=== PATIENT | male | born 1950 | race Caucasian/White ===

== ENCOUNTER 2018-11-22 19:50 | Emergency (ER) | payer MEDICARE, OTHER, SELFPAY ==
[2018-11-22 19:58] VITALS: BP 209/84; PULSE 72; RESP 16; TEMP 36.6; O2SAT 95; BMI 27.1
--- NOTE | 2018-11-22 20:08 | DI.RAD.S_ITS ---
PROCEDURE: XR CHEST 1V INDICATIONS: chest pain TECHNIQUE: One view of the chest was acquired. COMPARISON: None. FINDINGS: Surgical changes and devices: None. Lungs and pleura: Lungs are clear. No pleural effusions or pneumothorax. Mediastinum: Mediastinal contours appear normal. Heart size is normal. Bones and chest wall: No suspicious bony lesions. Overlying soft tissues appear unremarkable. IMPRESSION: No acute process. Dictated by: Paulette Wei M.D. on 11/22/2018 at 21:04 Approved by: Paulette Wei M.D. on 11/22/2018 at 21:04
[2018-11-22 20:23] LABS: Add Manual Diff / Slide Review NO; Basophils Absolute Auto 100 /uL (0-100); Basophils Percent Auto 1.4 % (0-2); Eosinophils Absolute Auto 300 /uL (0-450); Eosinophils Percent Auto 3.6 % (2-4); Hematocrit 37.4 % (41-53); Hemoglobin 12.4 g/dL (13.5-17.5); Lymphocytes Absolute Auto 1900 /uL (1100-4500); Lymphocytes Percent Auto 26.1 % (25-40); Mean Corpuscular HGB Conc 33.1 % (30-36); Mean Corpuscular Hemoglobin 32.2 PG (26-34); Mean Corpuscular Volume 97.3 fL (80-100); Monocytes Absolute Auto 800 /uL (0-900); Monocytes Percent Auto 11.1 % (3-14); Neutrophils Absolute Auto 4200 /uL (1500-7000); Neutrophils Percent Auto 57.8 % (50-75); Platelet Count 331 X10^3/uL (150-400); Red Blood Cell Count 3.84 X10^6/uL (4.5-5.9); White Blood Cell Count 7.3 X10^3/uL (4.5-11.0)
[2018-11-22 20:32] LABS: Alanine Aminotransferase 30 IU/L (21-72); Albumin 4.3 g/dL (3.5-5.0); Albumin Globulin Ratio 1.2 (1.0-2.8); Alkaline Phosphatase 63 U/L (38-126); Aspartate Aminotransferase 39 IU/L (17-59); BUN Creatinine Ratio 20.5 (6-22); Bilirubin Total 0.5 mg/dL (0.2-1.3); Blood Urea Nitrogen 41 mg/dL (9-20); Calcium 9.5 mg/dL (8.4-10.2); Carbon Dioxide 26 mmol/L (22-32); Chloride 102 mmol/L (98-107); Creatine Kinase 54 U/L (55-170); Estimated Glomerular Filt Rate 33.3 mL/min (>60); Globulin 3.7 g/dL (1.7-4.1); Glucose 124 mg/dL (80-110); HEMOLYSIS < 15 (0-50); Lipase 118 U/L (23-300); Potassium 4.5 mmol/L (3.4-5.1); Sodium 139 mmol/L (137-145)
[2018-11-22 20:38] LABS: INR 0.9 (0.9-1.3); Prothrombin Time 10.7 SECONDS (10.1-12.7)
[2018-11-22 20:41] LABS: PTT Partial Thromboplastin Tim 34 SECONDS (26.4-36.2)
[2018-11-22 20:43] LABS: Troponin I < 0.012 ng/mL (0.01-0.034)
--- NOTE | 2018-11-22 20:47 | ED_ITS ---
HPI - General Adult General Chief complaint: Hypertension Stated complaint: high blood pressure Time Seen by Provider: 11/22/18 20:11 Source: patient and family Mode of arrival: Ambulatory Limitations: no limitations History of Present Illness HPI narrative: Patient comes emergency department complaining of a high blood pressure reading at home. Patient states he felt ?off?, and so he checked his blood pressure at home and found to be 200 over 80. Patient denies chest pain or shortness breath. No headache, visual change, neurologic deficit, or blood in urine. No tea-colored urine. No lower extremity edema. Patient states that he has not checked his blood pressure in a couple of months, but when he has c hecked his pressure in the past, it has been 130s to 140 systolic. Patient states he has been on the same medications and doses for blood pressure for years, and has been stable. States he is currently on lisinopril and Dyazide. His primary care physician has been Dr. Becerra in [place], but as his PCP recently retired, he currently does not have anybody. Patient denies complaints currently. He states he came here because he looked up blood pressure on line, and found a [facility] website that said any blood pressure above 180 is hypertensive crisis, and to go to the emergency department. Related Data Previous Rx's Medication Instructions Recorded metoprolol tartrate 25 mg PO DAILY PRN #20 tab 11/22/18 Allergies Allergy/AdvReac Type Severity Reaction Status Date / Time adhesive tape AdvReac Mild Rash Verified 11/22/18 20:03 Review of Systems Constitutional Constitutional: Denies chills, Denies fatigue, Denies fever(s), Denies frequent falls, Denies lethargy and Denies weakness Eyes Eyes: Denies change in vision, Denies eye discharge, Denies irritation and Denies loss of vision ENT Ears, Nose, Mouth, and Throat: Denies change in voice, Denies dizziness, Denies neck pain, Denies sore throat and Denies throat swelling Cardiovascular Cardiovascular: Denies chest pain, Denies irregular heart rhythm, Denies lightheadedness, Denies palpitations, Denies dyspnea, Denies dyspnea on exertion and Denies orthopnea Respiratory Respiratory: Denies cough, Denies dyspnea, Denies dyspnea on exertion and Denies wheezing Gastrointestinal Gastrointestinal: Denies abdominal pain, Denies change in bowel habits, Denies diarrhea, Denies nausea and Denies vomiting Genitourinary Genitourinary: Denies hematuria, Denies flank pain, Denies urinary incontinence and Denies urinary urgency Musculoskeletal Musculoskeletal: Denies back pain, Denies muscle weakness, Denies neck pain, Denies numbness and Denies tingling Integumentary/Breasts Skin/Breast: Denies pruritus, Denies erythema, Denies rash and Denies wounds Neurologic Neurologic: Denies behavioral changes, Denies confusion, Denies dizziness, Denies frequent falls, Denies loss of vision, Denies numbness, Denies tingling and Denies weakness Psychiatric Psychiatric: Denies anxiety, Denies behavioral changes, Denies confusion, Denies depression, Denies homicidal ideation and Denies suicidal ideation Endocrine Endocrine: Denies fatigue, Denies flushing and Denies palpitations Hematologic/Lymphatic Hematologic/Lymphatic: Denies easy bruising Allergic/Immunologic Allergic/Immunologic: Denies urticaria, Denies throat swelling and Denies wheezing Exam Initial Vital Signs Initial Vital Signs: Vital Signs Temperature 97.9 F 11/22/18 19:58 Pulse Rate 72 11/22/18 19:58 Respiratory Rate 16 11/22/18 19:58 Blood Pressure 209/84 H 11/22/18 19:58 Pulse Oximetry 95 11/22/18 19:58 Const General: cooperative and well developed Nutritional Appearance: well nourished Orientation: alert, awake, oriented x3 and not confused [facility] Head: normocephalic and atraumatic Ears: external ears normal Nose: external nose normal and No nasal discharge Face and sinus: face symmetric and No dry mucous membranes Mouth: oral mucosae normal and moist mucous membranes Teeth and gingiva: dentition normal Eyes General: appearance normal, both eyes and all related structures Eyelids: eyelids normal Conjunctivae: conjunctivae normal Sclera: sclerae normal Pupils: PERRL EOM: EOM intact bilaterally Neck Neck: normal visual inspection, trachea midline, No lymphadenopathy, No midline deformity and No JVD Lymphatic: No lymphedema Chest Chest: normal inspection of the chest Resp Effort & Inspection: normal respiratory effort, able to speak in complete sentences, no respiratory distress and no use of accessory muscles Auscultation: clear to auscultation bilaterally, no rales, no rhonchi and no wheezes Cardio Rate: regular rate Rhythm: regular rhythm Heart Sounds: no click, no gallops, no murmurs and no rubs Pulses: normal peripheral pulses GI Inspection: non-distended Palpation: soft, no hepatosplenomegaly, No guarding, No pulsatile mass and No tender Back/Spine/Pelvis Back: No CVA tenderness Cervical Spine: cervical ROM normal and No pain with cervical ROM Thoracic/Lumbar Spine: thoracic and lumbar spine normal to inspection Skin General: no rashes or lesions noted, No jaundice and No petechiae Neuro General: alert, oriented x3, gait normal and no focal motor deficits Speech: speech normal Extrem General: full ROM, no clubbing, cyanosis or edema, no pedal edema and no calf tenderness Psych Appearance: well kempt Mental Status: mental status grossly normal Attitude: cooperative Thought Content: normal and suicidality Judgment: judgment good Course Course Course Narrative: Patient was worked up in the emergency department with laboratory studies. He was asymptomatic in the emergency department, and I discussed with the patient and his that the patient is not and hypertensive emergency. It is not clear why his blood pressure has suddenly become higher than the patient reports that usually. His blood pressure had come down quite a bit in the emergency department from what he reported finding it to be at home. The patient's labs were unremarkable, other than some moderate renal insufficiency. I discussed with the patient that we can start him on metoprolol from the emergency department, but he will need to monitor his blood pressures and have close follow-up with his primary care physician. We have discussed the signs and symptoms of hypertensive emergency, which should most definitely prompt immediate return. Orders Ordered: ED Orders 11/22/18 20:08 XR chest 1V Stat 11/22/18 20:13 Complete Blood Count AUTO DIFF Stat Comprehensive Metabolic Panel Stat Lipase Stat Partial Thromboplastin Time Stat Prothrombin Time INR Stat Troponin & CK Cardiac Panel Stat 11/22/18 20:46 Thyroid Stimulating Hormone Stat 11/22/18 21:10 EKG-12 Lead Stat Vital Signs Vital signs: Vital Signs - 8 hr 11/22/18 19:58 Temperature 97.9 F Pulse Rate 72 Respiratory Rate 16 Blood Pressure 209/84 H Pulse Oximetry 95 Medical Decision Making Medical Records Medical records reviewed: Yes I reviewed the patient's medical records. Lab Data Lab results reviewed: Yes I reviewed the patient's lab results. Result diagrams: 11/22/18 20:13 11/22/18 20:13 Labs: Lab Results 11/22/18 11/22/18 11/22/18 Range/Units 20:13 20:13 20:13 WBC 7.3 (4.5-11.0) X10^3/uL RBC 3.84 L (4.5-5.9) X10^6/uL Hgb 12.4 L (13.5-17.5) g/dL Hct 37.4 L (41-53) % MCV 97.3 (80-100) fL MCH 32.2 (26-34) PG MCHC 33.1 (30-36) % RDW 13.0 (11.6-14.8) % Plt Count 331 (150-400) X10^3/uL Neut % (Auto) 57.8 (50-75) % Lymph % (Auto) 26.1 (25-40) % [place] % (Auto) 11.1 (3-14) % Eos % (Auto) 3.6 (2-4) % Baso % (Auto) 1.4 (0-2) % Neut # (Auto) 4200 (1830-3517) /uL Lymph # (Auto) 1900 (8596-5122) /uL [place] # (Auto) 800 (0-900) /uL Eos # (Auto) 300 (0-450) /uL Baso # (Auto) 100 (0-100) /uL PT 10.7 (10.1-12.7) SECONDS INR 0.9 (0.9-1.3) APTT 34 (26.4-36.2) SECONDS Sodium 139 (137-145) mmol/L Potassium 4.5 (3.4-5.1) mmol/L Chloride 102 (98-107) mmol/L Carbon Dioxide 26 (22-32) mmol/L BUN 41 H (9-20) mg/dL Creatinine 2.00 H (0.66-1.25) mg/dL Estimated GFR 33.3 L (>60) mL/min BUN/Creatinine Ratio 20.5 (6-22) Glucose 124 H (80-110) mg/dL Calcium 9.5 (8.4-10.2) mg/dL Total Bilirubin 0.5 (0.2-1.3) mg/dL AST 39 (17-59) IU/L ALT 30 (21-72) IU/L Alkaline Phosphatase 63 (38-126) U/L Total Creatine Kinase 54 L (55-170) U/L CK-MB (CK-2) TNP CK-MB (CK-2) Rel Index TNP Troponin I < 0.012 (0.01-0.034) ng/mL Total Protein 8.0 (6.3-8.2) g/dL Albumin 4.3 (3.5-5.0) g/dL Globulin 3.7 (1.7-4.1) g/dL Albumin/Globulin Ratio 1.2 (1.0-2.8) Lipase 118 (23-300) U/L TSH (0.47-4.68) uIU/mL 11/22/18 Range/Units 20:13 WBC (4.5-11.0) X10^3/uL RBC (4.5-5.9) X10^6/uL Hgb (13.5-17.5) g/dL Hct (41-53) % MCV (80-100) fL MCH (26-34) PG MCHC (30-36) % RDW (11.6-14.8) % Plt Count (150-400) X10^3/uL Neut % (Auto) (50-75) % Lymph % (Auto) (25-40) % [place] % (Auto) (3-14) % Eos % (Auto) (2-4) % Baso % (Auto) (0-2) % Neut # (Auto) (7916-1821) /uL Lymph # (Auto) (1257-3053) /uL [place] # (Auto) (0-900) /uL Eos # (Auto) (0-450) /uL Baso # (Auto) (0-100) /uL PT (10.1-12.7) SECONDS INR (0.9-1.3) APTT (26.4-36.2) SECONDS Sodium (137-145) mmol/L Potassium (3.4-5.1) mmol/L Chloride (98-107) mmol/L Carbon Dioxide (22-32) mmol/L BUN (9-20) mg/dL Creatinine (0.66-1.25) mg/dL Estimated GFR (>60) mL/min BUN/Creatinine Ratio (6-22) Glucose (80-110) mg/dL Calcium (8.4-10.2) mg/dL Total Bilirubin (0.2-1.3) mg/dL AST (17-59) IU/L ALT (21-72) IU/L Alkaline Phosphatase (38-126) U/L Total Creatine Kinase (55-170) U/L CK-MB (CK-2) CK-MB (CK-2) Rel Index Troponin I (0.01-0.034) ng/mL Total Protein (6.3-8.2) g/dL Albumin (3.5-5.0) g/dL Globulin (1.7-4.1) g/dL Albumin/Globulin Ratio (1.0-2.8) Lipase (23-300) U/L TSH 2.43 (0.47-4.68) uIU/mL Discharge Plan Departure Patient Disposition: Home Clinical Impression: HTN (hypertension) Qualifiers: Hypertension type: essential hypertension Qualified Code(s): I10 - Essential (primary) hypertension Discharge Date/Time: 11/22/18 22:17 Instructions: DI for High Blood Pressure Activity Restrictions/Additional Instructions: Your labs, overall, looks good. There is some slowing of your kidneys, which appears to most likely be chronic. You will need to discuss this with your doctor when you follow-up. Your blood pressure now is a lot better than when you came in. You have not displayed any symptoms of hypertensive emergency/stephon is. At this point in time, you should continue your current medications for blood pressure. However, you should check your blood pressure in the morning and evening. If your morning blood pressure is greater than 150 for the top number, you should take a dose of the medication we prescribed, in addition to your normal blood pressure medications. Please schedule appointment with your primary care physician to be seen within the next week, if possible. Prescriptions: New metoprolol tartrate 25 mg tablet 25 mg PO DAILY PRN (Reason: hypertension) Qty: 20 RF: 0 Referrals: Sean Becerra MD [Primary Care Provider] -
[2018-11-22 21:14] VITALS: BP 151/62; PULSE 63; O2SAT 99
[2018-11-22 21:32] LABS: Thyroid Stimulating Hormone 2.43 uIU/mL (0.47-4.68)
== END 2018-11-22 22:17 | disposition home or self-care (01) ==
PROVIDERS: Emergency Medicine; Emergency Provider Emergency Medicine; PCP Internal Medicine
DX: I10 Essential (primary) hypertension (principal); R07.9 Chest pain, unspecified
CPT/HCPCS: 36415; 71045; 80053; 82550; 83690; 84443; 84484; 85025; 85610; 85730; 93005; 99283; 99285

== ENCOUNTER → 2018-12-27 18:50 | Outpatient (ROUT) | payer MEDICARE, OTHER, SELFPAY ==
[2018-12-27 19:29] LABS: BUN Creatinine Ratio 20.5 (6-22); Blood Urea Nitrogen 41 mg/dL (9-20); C-Reactive Protein Quant 0.7 mg/dL (<1.0); Calcium 9.5 mg/dL (8.4-10.2); Carbon Dioxide 25 mmol/L (22-32); Chloride 103 mmol/L (98-107); Cholesterol 116 mg/dL (140-199); Estimated Glomerular Filt Rate 33.2 mL/min (>60); Glucose 96 mg/dL (80-110); HDL Cholesterol 36 mg/dL (40-60); HEMOLYSIS < 15 (0-50); LDL Cholesterol Calculated 58 mg/dL (<100); Potassium 4.9 mmol/L (3.4-5.1); Sodium 138 mmol/L (137-145); Triglycerides 108 mg/dL (35-150)
== END ==
PROVIDERS: PCP Internal Medicine; Visit Provider Internal Medicine
DX: N17.9 Acute kidney failure, unspecified (principal); I76 Septic arterial embolism; E78.2 Mixed hyperlipidemia
CPT/HCPCS: 80048; 80061; 86140

== ENCOUNTER → 2022-12-29 11:08 | Outpatient (CLI) | payer MEDICARE, OTHER, SELFPAY ==
--- NOTE | 2022-12-29 | DI.MRI.S_ITS ---
PROCEDURE: MR ABDOMEN RENAL PROTOCOL INDICATIONS: LEFT RENAL MASS TECHNIQUE: Coronal HASTE through abdomen and pelvis; axial 2D FLASH in- and [id number] (with and without fat saturation), and breath-hold T2 FSE from the hepatic dome to the bottom of the kidneys. Coronal HASTE MR urogram of kidneys and bladder. Dynamic coronal VIBE during IV gadolinium administration; postgadolinium axial VIBE or 2D FLASH with fat saturation from the hepatic dome through the kidneys. COMPARISON: [facility], MR, MR ABDOMEN PELVIS WITH/WITHOUT CONTRAST, 05/19/2022, 9:58. FINDINGS: Image quality: Excellent. Genitourinary system: There are several intraparenchymal cysts in each kidney of varying sizes, but overall similar in size and number compared to the prior exam. Several demonstrate portions of intrinsic T1 hyperintensity. None demonstrate significant enhancement postcontrast. 1 such lesion is along the posterior midpole right kidney, 14/61, and another is and intraparenchymal lesion in the midpole lateral left kidney, 14/56. The left lateral lesion measures about 1.8 cm and demonstrates restricted diffusion. No hydronephrosis or visible hydroureter. Other solid organs: Several cysts in the liver. No visible enhancing mass. Normal gallbladder and biliary tree. Trace interstitial and peripancreatic edema. Glandular signal appears homogeneous. No ductal dilatation. No adrenal nodules. Normal spleen Nodes and vessels: No retroperitoneal or mesenteric adenopathy. Bowel and peritoneum: There is a small amount of free fluid in the perihepatic and perisplenic upper quadrants and dependently in the pelvis. Mild edema in the lesser sac and peripancreatic region. Stomach and bowel loops appear normal. No obstruction. Lung bases: No basal effusions. Bones and soft tissues: Normal marrow signal. No visible soft tissue abnormalities. IMPRESSION: 1. Stable size of equivocal lesion in the midpole left kidney which demonstrates no significant enhancement but restricted diffusion. Continued follow-up recommended. 2. No significant change in other Bosniak 2 lesions in each kidney. 3. There is four-quadrant ascites to a mild degree and generalized edema in the lesser sac and probably peripancreatic region. There may be mild interstitial pancreatic edema suggesting pancreatitis. Correlate with labs and with clinical symptoms. Dictated by: Misty Scott M.D. on 12/29/2022 at 15:47 Approved by: Misty Scott M.D. on 12/29/2022 at 16:16
== END ==
PROVIDERS: PCP Internal Medicine; Referring Provider Urology; Visit Provider Urology
DX: N28.89 Other specified disorders of kidney and ureter (principal); R18.8 Other ascites
CPT/HCPCS: 74183

== ENCOUNTER → 2023-07-06 08:43 | Outpatient (CLI) | payer MEDICARE, OTHER, SELFPAY ==
--- NOTE | 2023-07-06 08:44 | DI.MG.S_ITS ---
MALE BILATERAL DIGITAL DIAGNOSTIC MAMMOGRAM 3D/2D: 07/06/2023 CLINICAL: Left nipple tenderness. No prior exams were available for comparison. There is asymmetric left breast gynecomastia corresponding to area of clinical concern. No significant masses, calcifications, or other findings are seen in either breast. IMPRESSION: BENIGN Left breast asymmetric gynecomastia corresponding to area of clinical concern. Finding is benign. No mammographic evidence of malignancy. Recommend clinical follow up. Findings and recommendations were conveyed to the patient during today's evaluation. This exam was interpreted at Station ID: [id number]. NOTE: For mammograms, a report in lay terms will be sent to the patient. Approximately 15% of breast malignancies will not be visualized mammographically. In the management of a palpable breast mass, a negative mammogram must not discourage biopsy of a clinically suspicious lesion. Electronically Signed By: Amy Guevara M.D., Ph.D. eb/:07/06/2023 09:44:06 letter sent: Clinical Evaluation ACR BI-RADS Category 2: Benign Finding(s) 3342F
== END ==
PROVIDERS: PCP Internal Medicine; Referring Provider Internal Medicine; Visit Provider Internal Medicine
DX: N62 Hypertrophy of breast (principal); N63.20 Unspecified lump in the left breast, unspecified quadrant
CPT/HCPCS: 77066; G0279

== ENCOUNTER → 2023-08-15 14:55 | Outpatient (CLI) | payer MEDICARE, OTHER, SELFPAY ==
--- NOTE | 2023-08-15 14:57 | DI.RAD.S_ITS ---
PROCEDURE: XR FOOT RT MIN 3V INDICATIONS: Foot pain at base of great toe TECHNIQUE: Three views of the foot were acquired. COMPARISON: None. FINDINGS: Bones: Normal mineralization. There is bipartite medial sesamoid bone at the 1st metatarsal. Fragmentation of the bipartite lateral sesamoid bone, dystrophic calcifications, and slight distal in lateral displacement of one fragment is noted. Mild degenerative changes at the 1st MTP joint space. Normal alignment. Soft tissues: No tibiotalar joint effusion. Achilles tendon appears normal. Moderate peripheral vascular calcification. IMPRESSION: Dystrophic calcifications and fragmentation of sesamoid bones at the 1st metatarsal base. This could indicate prior fracture and disorganized, hypertrophic healing, prior fracture nonunion, or metabolic disorder. Moderate peripheral vascular calcification. Dictated by: Misty Scott M.D. on 08/15/2023 at 23:06 Approved by: Misty Scott M.D. on 08/15/2023 at 23:10
== END ==
PROVIDERS: PCP Internal Medicine; Referring Provider Nurse Practitioner Family; Visit Provider Nurse Practitioner Family
DX: M79.671 Pain in right foot (principal); I73.9 Peripheral vascular disease, unspecified; M25.50 Pain in unspecified joint
CPT/HCPCS: 36415; 73630; 84550

== ENCOUNTER → 2023-09-12 | Outpatient (CLI) | payer MEDICARE, OTHER, SELFPAY ==
--- NOTE | 2023-09-12 13:14 | DI.MRI.S_ITS ---
PROCEDURE: MR FOOT RT WO CON INDICATIONS: RT FOOT PAIN/RT GREAT TOE PROXIMAL PHALANX PAIN TECHNIQUE: Multiphasic, multisequence MRI of the forefoot was performed, without intravenous contrast administration. COMPARISON: [facility] [place], CR, XR FOOT 3 VIEWS WEIGHT BEARING RIGHT, 09/02/2023, 12:43. FINDINGS: Image quality: Excellent. Bones and joints: Diffuse marrow edema of the 1st proximal phalanx, without fracture line, nonspecific. There is mild subchondral cystic changes seen in the 1st metatarsal head, favoring degenerative. Bipartite tibial hallucal sesamoid. Small calcification slightly distal to the fibular hallucal sesamoid, concerning for hydroxyapatite deposition disease (series 10, image 29). Soft tissues: Diffuse mild muscle edema, without significant fatty atrophy. Diffuse subcutaneous edema of the dorsal midfoot. Moderate adventitial bursitis plantar to the 5th metatarsal head. The Lisfranc ligament is intact. The flexor and the extensor tendon unremarkable. No significant intermetatarsal bursitis. IMPRESSION: 1. Small calcification distal to the fibula hallucal sesamoid, concerning for hydroxyapatite deposition disease. 2. Diffuse marrow edema of the 1st proximal phalanx, nonspecific and may be reactive. No acute fracture. 3. Diffuse mild muscle edema without fatty atrophy. Subcutaneous edema in the dorsal midfoot. 4. Moderate adventitial bursitis plantar to the fifth metatarsal head. Dictated by: Emily Estrada M.D. on 09/12/2023 at 15:00 Approved by: Emily Estrada M.D. on 09/12/2023 at 15:13
== END ==
PROVIDERS: PCP Internal Medicine; Referring Provider Orthopaedic Surgery Foot and Ankle Surgery; Visit Provider Orthopaedic Surgery Foot and Ankle Surgery
DX: M71.571 Other bursitis, not elsewhere classified, right ankle and foot (principal); M79.671 Pain in right foot; M25.474 Effusion, right foot
CPT/HCPCS: 73718

== ENCOUNTER → 2023-10-19 12:18 | Outpatient (CLI) | payer MEDICARE, OTHER, SELFPAY ==
[2023-10-19 18:03] LABS: Prolactin 28.5 ng/mL (3.7-17.9)
[2023-10-19 18:19] LABS: Testosterone 429 ng/dL (71.8-623)
[2023-10-19 21:03] LABS: Follicle Stimulating Hormone 4.81 mIU/mL; Luteinizing Hormone 16.9 mIU/mL
== END ==
LOC: LAB 12:19
PROVIDERS: PCP Internal Medicine; Referring Provider Internal Medicine; Visit Provider Internal Medicine
DX: N62 Hypertrophy of breast (principal); D35.2 Benign neoplasm of pituitary gland
CPT/HCPCS: 36415; 83001; 83002; 84146; 84403

== ENCOUNTER 2024-02-29 16:16 | Emergency (ER) | payer MEDICARE, OTHER, SELFPAY ==
[2024-02-29] VITALS (13 sets, daily range): BP systolic 162–186; BP diastolic 77–87; PULSE 66–82; RESP 16; TEMP 36.5; O2SAT 95–98; BMI 25.7
--- NOTE | 2024-02-29 16:36 | PC.NURSE ---
Pt wishes to speak to MD before NIO are initiated. Pt states he had blood work drawn yesterday at [facility]. Pt informed we do not have records to [facility].
--- NOTE | 2024-02-29 17:43 | PC.NURSE ---
Patient has been having fatigue and coughing for 10 days. He's an end stage renal patient and has his labs drawn by the [facility] yesterday and has not been given the results. The patient was given a transfusion for low H&H readings 5 days ago and has not felt better and had a POC Hgb of 7.[address] Chacon's office and was sent here given his presenting symptoms and history
[2024-02-29 17:50] LABS: Add Manual Diff / Slide Review NO; Basophils Absolute Auto 100 /uL (0-100); Basophils Percent Auto 0.7 % (0-2); Eosinophils Absolute Auto 100 /uL (0-450); Eosinophils Percent Auto 1.7 % (2-4); Hematocrit 29.8 % (41-53); Hemoglobin 9.8 g/dL (13.5-17.5); Lymphocytes Absolute Auto 900 /uL (1100-4500); Lymphocytes Percent Auto 10.6 % (25-40); Mean Corpuscular HGB Conc 32.8 % (30-36); Mean Corpuscular Hemoglobin 31.8 PG (26-34); Monocytes Absolute Auto 1200 /uL (0-900); Monocytes Percent Auto 13.1 % (3-14); Neutrophils Absolute Auto 6500 /uL (1500-7000); Neutrophils Percent Auto 73.9 % (50-75); Platelet Count 353 X10^3/uL (150-400); Red Blood Cell Count 3.07 X10^6/uL (4.5-5.9); Red Cell Distribution Width 15.9 % (11.6-14.8); White Blood Cell Count 8.8 X10^3/uL (4.5-11.0)
[2024-02-29 18:03] LABS: Alanine Aminotransferase 32 IU/L (<50); Albumin 3.9 g/dL (3.5-5.0); Albumin Globulin Ratio 1.1 (1.0-2.8); Alkaline Phosphatase 73 U/L (38-126); Aspartate Aminotransferase 33 IU/L (17-59); BUN Creatinine Ratio 8.5 (6-22); Bilirubin Total 0.6 mg/dL (0.2-1.3); Blood Urea Nitrogen 99 mg/dL (9-20); Calcium 7.3 mg/dL (8.4-10.2); Carbon Dioxide 19 mmol/L (22-32); Chloride 102 mmol/L (98-107); Estimated Glomerular Filt Rate 4 mL/min (>60); Globulin 3.5 g/dL (1.7-4.1); Glucose 103 mg/dL (80-110); HEMOLYSIS < 15 (0-50); Potassium 4.4 mmol/L (3.4-5.1); Sodium 136 mmol/L (137-145); Total Protein 7.4 g/dL (6.3-8.2)
--- NOTE | 2024-02-29 18:10 | ED_ITS ---
HPI - Weakness General Chief complaint: Weakness Stated complaint: fatigue, cough, sent by PCP Time Seen by Provider: 02/29/24 17:18 Source: patient, RN notes reviewed and old records reviewed Mode of arrival: Ambulatory Limitations: no limitations History of Present Illness HPI Narrative: 73-year-old history of hypertension, dyslipidemia, GERD end-stage renal disease peritoneal dialysis Tuesday through Tuesday. Patient states he has had about 10 days of fatigue which he describes as she has been very tired. He was also has a little bit of a cough and some chest congestion. He states no fevers or chills. Denies any chest pain or pressure. No shortness of breath. No lightheadedness or passing out. No nausea or vomiting. No diarrhea or constipation. He does make urine he has not noticed any dysuria urgency or frequency or change in output. He denies any swelling of his extremities. He noticed his hips we will sort of feel heavy when he ambulates longer distance. He feels better today than he did the last 10 days notes he has been sleeping more than usual. He did see his computer patternmaker they thought he might be dehydrated and adjusted his dialysis this did not change anything they had labs obtained found he was anemic with a hemoglobin in the 7 range had transfusion and improved to 9 with no change in symptoms. Nephrology referred him to his primary care who referred him here. He had a respiratory swab in the office but these results are not available to the patient myself. He states he takes medication for hypertension, GERD, dyslipidemia, BPH, states his end-stage renal disease is assumed to be hypertension induced. Denies any major surgeries. Does do peritoneal dialysis Tuesday through Tuesday. No known drug allergies. No tobacco, alcohol or recreational drugs. Related Data Home Medications Medication Instructions Recorded Confirmed ascorbic acid (vitamin C) 500 mg 500 mg PO DAILY 04/16/22 02/29/24 tablet cholecalciferol (vitamin D3) 25 25 mcg PO DAILY 04/16/22 02/29/24 mcg (1,000 unit) capsule dorzolamide 2 % eye drops 1 drp EYE-BOTH BID 04/16/22 02/29/24 folic acid 800 mcg tablet 1.6 mg PO BID 04/16/22 02/29/24 latanoprost 0.005 % eye drops 1 drp EYE-BOTH DAILY 04/16/22 02/29/24 multivitamin 1 tab PO DAILY 04/16/22 02/29/24 tamsulosin 0.4 mg capsule 0.8 mg PO BEDTIME 04/16/22 02/29/24 thera tear 1 drp ophthalmic (eye) DAILY 04/16/22 02/29/24 darbepoetin bo in polysorbat IV [id number] anemia 04/19/23 02/29/24 [Aranesp (in polysorbate)] Previous Rx's Medication Instructions Recorded sulfasalazine 500 mg tablet 1 g (2 x 500 mg) PO BID #180 tabs 06/16/23 amlodipine 10 mg tablet 10 mg PO DAILY #90 tabs 11/14/23 omeprazole 20 mg capsule,delayed 20 mg PO DAILY #90 caps 11/14/23 release carvedilol 25 mg tablet 25 mg PO BID #180 tabs 01/02/24 rosuvastatin 20 mg tablet 20 mg PO DAILY #90 tabs 01/02/24 amoxicillin 500 mg-potassium 1 tab PO DAILY #9 tabs 02/29/24 clavulanate 125 mg tablet (Augmentin) Allergies Allergy/AdvReac Type Severity Reaction Status Date / Time adhesive tape Allergy Mild Rash Verified 02/29/24 15:45 finasteride AdvReac Intermediate gynecomasti Verified 02/29/24 15:45 a Review of Systems Review of Systems ROS Unobtainable: All systems reviewed & are unremarkable except as noted in HPI and below Patient History Medical History Primary osteoarthritis involving multiple joints Peritoneal dialysis status Gynecomastia Venous (peripheral) insufficiency Stage 4 chronic kidney disease BPH w urinary obs/LUTS Mixed hyperlipidemia Essential hypertension Acne Fractures (~1964) Chronic back pain Measles Anemia Retinal vein occlusion of right eye Glaucoma Ulcerative colitis GERD (gastroesophageal reflux disease) Surgical History Anesthesia Hx of removal of neck cyst (~1961) Family History Father COPD (chronic obstructive pulmonary disease) Pneumonia Mother History of heart disease Mental health problem Grandfather History of emphysema 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 No edema bilateral lower extremities. No JVD. RESPIRATORY: Breath sounds equal bilaterally, no wheezes rales or rhonchi. Patient has a mild cough in the room. No difficulty with breathing, no tachypnea accessory muscle use ABDOMEN: Soft, nontender. Normoactive bowel sounds all 4 quadrants. No guarding or rebound, rigidity, no mass : No CVA tenderness EXTREMITIES: Normal range of motion, no clubbing or edema. Neurovascularly intact NEUROLOGICAL: Cranial nerves II through XII grossly intact. Moving all extremities SKIN: Warm, dry, no petechiae, no rashes or lesions. Initial Vital Signs Initial Vital Signs: Vital Signs Temperature 97.7 F 02/29/24 16:20 Pulse Rate 69 02/29/24 16:20 Respiratory Rate 16 02/29/24 16:20 Blood Pressure 181/81 H 02/29/24 16:20 Pulse Oximetry 98 02/29/24 16:20 Oxygen Delivery Method Room Air 02/29/24 16:20 Course Orders Ordered: Discontinued Medications Amoxicillin/Clavulanate Potassium (Amoxicillin/Clav 500/125 Mg) 1 tab PO NOW ONE Stop: 02/29/24 19:37 Last Admin: 02/29/24 19:49 Dose: 1 tab Documented By: GILLIAN Vital Signs Vital signs: Vital Signs - 8 hr 02/29/24 16:20 Temperature 97.7 F Pulse Rate 69 Respiratory Rate 16 Blood Pressure 181/81 H Pulse Oximetry 98 Oxygen Delivery Method Room Air MDM - Weakness Lab Data 02/29/24 17:37 02/29/24 17:37 Labs: Lab Results 02/29/24 02/29/24 Range/Units 17:37 18:25 WBC 8.8 (4.5-11.0) X10^3/uL RBC 3.07 L (4.5-5.9) X10^6/uL Hgb 9.8 L (13.5-17.5) g/dL Hct 29.8 L (41-53) % MCV 97.0 (80-100) fL MCH 31.8 (26-34) PG MCHC 32.8 (30-36) % RDW 15.9 H (11.6-14.8) % Plt Count 353 (150-400) X10^3/uL Neut % (Auto) 73.9 (50-75) % Lymph % (Auto) 10.6 L (25-40) % [place] % (Auto) 13.1 (3-14) % Eos % (Auto) 1.7 L (2-4) % Baso % (Auto) 0.7 (0-2) % Neut # (Auto) 6500 (6960-8054) /uL Lymph # (Auto) 900 L (4576-8885) /uL [place] # (Auto) 1200 H (0-900) /uL Eos # (Auto) 100 (0-450) /uL Baso # (Auto) 100 (0-100) /uL Sodium 136 L (137-145) mmol/L Potassium 4.4 (3.4-5.1) mmol/L Chloride 102 (98-107) mmol/L Carbon Dioxide 19 L (22-32) mmol/L BUN 99 H (9-20) mg/dL Creatinine 11.63 H* (0.66-1.25) mg/dL Estimated GFR 4 L (>60) mL/min BUN/Creatinine Ratio 8.5 (6-22) Glucose 103 (80-110) mg/dL Calcium 7.3 L (8.4-10.2) mg/dL Total Bilirubin 0.6 (0.2-1.3) mg/dL AST 33 (17-59) IU/L ALT 32 (<50) IU/L Alkaline Phosphatase 73 (38-126) U/L Total Creatine Kinase 46 L (55-170) U/L Troponin I < 0.012 (0.01-0.034) ng/mL NT-Pro-B Natriuret Pep 3700 H (<450) pg/mL Total Protein 7.4 (6.3-8.2) g/dL Albumin 3.9 (3.5-5.0) g/dL Globulin 3.5 (1.7-4.1) g/dL Albumin/Globulin Ratio 1.1 (1.0-2.8) SARS-CoV-2 (PCR) Positive H (Negative) Influenza A (RT-PCR) Flu a negative (NEGATIVE) Influenza B (RT-PCR) Flu b negative (NEGATIVE) RSV (PCR) Negative (Negative) Blood Type O Positive Antibody Screen Negative ECG Data Attestation: I personally reviewed and interpreted this ECG as follows: Prior ECG tracings: available for review Interpretation: Sinus rhythm with first-degree AV block rate of 68 KS 230 QRS 84 QTC of 457, no acute ST changes appreciated patient has prior from 11/22/2018 to myself no acute ST changes appreciated. MDM Narrative Medical decision making narrative: 73-year-old male with end-stage renal disease who presents with complaint of cough and fatigue for the past 10 days does states today he was feeling a little bit improved had met with his computer patternmaker was found to be anemic at 7 had transfusion his hemoglobin is 9.8 today also had adjustments to his dialysis as they thought he might be dehydrated but did not improve his symptoms. EKG shows sinus rhythm first-degree AV block appears similar to prior from 11/22/2018. Show white count 8.8 hemoglobin of 9.8 platelets are 353. Chemistries shows sodium 136 potassium 4.4 chloride of 102 CO2 of 19 with a BUN of 99 creatinine today is 11.63 with a glucose of 103 calcium 7.3 LFTs are otherwise appropriate. Troponin is less than 0.012. BNP is 3700 COVID/influenza/RSV is positive for COVID Chest x-ray, right lower lobe posterior segmental pneumonia. Discussed with the patient based on his description of symptoms he was probably towards the tail end of his COVID chest x-ray does show little bit of pneumonia we will go ahead and treat he has not had any fevers present risk for immune compromise. Labs overall do not show any major changes creatinine is elevated but he has not had his dialysis today BNP is elevated but also has not had his dialysis today he does not appear fluid overloaded his chest x-ray does not reflect this. Discharge Plan Departure Patient Disposition: Home Clinical Impression: COVID-19 virus infection, Pneumonia Instructions: DI for COVID-19 (Suspected or Confirmed ) Activity Restrictions/Additional Instructions: You have tested for COVID-19 today this is a viral illness that typically last 7-10 days you are likely at the tail end of this but your chest x-ray does show changes consistent with the posterior lower left pneumonia so you has been started on oral antibiotic. Please take antibiotics until completed, take Augmentin once daily. Prescription sent to [facility] in [place] Please return if you develop fevers, increasing fatigue, shortness of breath, chest pain, lightheadedness or passing out, vomiting, decreased urine output, new swelling of your extremities or other new or concerning changes. Prescriptions: New amoxicillin-pot clavulanate [Augmentin] 500-125 mg tablet 1 tab PO DAILY Qty: 9 0RF No Action sulfasalazine 500 mg tablet 1 g PO BID Qty: 180 3RF omeprazole 20 mg capsule,delayed release(DR/EC) 20 mg PO DAILY Qty: 90 3RF amlodipine 10 mg tablet 10 mg PO DAILY Qty: 90 3RF carvedilol 25 mg tablet 25 mg PO BID Qty: 180 3RF rosuvastatin 20 mg tablet 20 mg PO DAILY Qty: 90 3RF tamsulosin 0.4 mg capsule 0.8 mg PO BEDTIME folic acid 800 mcg tablet 1.6 mg PO BID cholecalciferol (vitamin D3) 25 mcg (1,000 unit) capsule 25 mcg PO DAILY multivitamin Tablet 1 tab PO DAILY ascorbic acid (vitamin C) 500 mg tablet 500 mg PO DAILY dorzolamide 2 % drops 1 drp EYE-BOTH BID thera tear 1 drp ophthalmic (eye) DAILY latanoprost 0.005 % drops 1 drp EYE-BOTH DAILY darbepoetin bo in polysorbat [Aranesp (in polysorbate)] IV [id number] Referrals: Stephen Chacon MD [Primary Care Provider] - Stand Alone Forms: Patient Portal/API/Survey
--- NOTE | 2024-02-29 18:20 | EKG_ITS ---
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
--- NOTE | 2024-02-29 18:25 | DI.RAD.S_ITS ---
PROCEDURE: XR CHEST 2V INDICATIONS: fatigue cough, hx esrd TECHNIQUE: 2 views of the chest were acquired. COMPARISON: [facility], CR, XR CHEST 1V, 11/22/2018, 20:43. FINDINGS: Surgical changes and devices: None. Lungs and pleura: New right lower lobe posterior segmental opacification. Incidentally noted right upper accessory azygos lobe. No pleural effusions or pneumothorax. Mediastinum: Mediastinal contours are normal. Heart size is normal. Bones and chest wall: No suspicious bony abnormalities. Soft tissues appear unremarkable. IMPRESSION: Right lower lobe posterior segmental pneumonia. Dictated by: Dionicio Esparza M.D. on 02/29/2024 at 19:24 Approved by: Dionicio Esparza M.D. on 02/29/2024 at 19:25
[2024-02-29 18:50] LABS: Creatine Kinase 46 U/L (55-170)
[2024-02-29 19:03] LABS: NT-proBNP (BNP-Adult 18+) 3700 pg/mL (<450); Troponin I < 0.012 ng/mL (0.01-0.034)
[2024-02-29 19:13] LABS: Influenza A - CEPHEID Flu A NEGATIVE (NEGATIVE); Influenza B - CEPHEID Flu B NEGATIVE (NEGATIVE); Respiratory Syncytial Virus Negative (Negative)
[2024-02-29 19:18] LABS: COVID-19 CEPHEID 4-PLEX PCR POSITIVE (Negative)
[2024-02-29] MEDS: AMOXICILLIN/CLAV 500/125 MG 1 TAB PO (19:49)
== END 2024-02-29 19:55 | disposition home or self-care (01) ==
PROVIDERS: Emergency Medicine; Emergency Provider Emergency Medicine; PCP Internal Medicine
DX: U07.1 COVID-19 (principal); J18.9 Pneumonia, unspecified organism; R05.9 Cough, unspecified; R09.89 Other specified symptoms and signs involving the circulatory and respiratory systems; I44.0 Atrioventricular block, first degree
CPT/HCPCS: 0241U; 36415; 71046; 80053; 82550; 83880; 84484; 85025; 86850; 86900; 86901; 93005; 93010; 99283; 99284

== ENCOUNTER → 2024-05-02 11:52 | Outpatient (CLI) | payer MEDICARE, OTHER, SELFPAY ==
[2024-05-02 13:03] LABS: Hematocrit 41.2 % (41-53); Hemoglobin 13.3 g/dL (13.5-17.5); Mean Corpuscular HGB Conc 32.4 % (30-36); Mean Corpuscular Hemoglobin 32.8 PG (26-34); Mean Corpuscular Volume 101.1 fL (80-100); Platelet Count 284 X10^3/uL (150-400); Red Blood Cell Count 4.07 X10^6/uL (4.5-5.9); Red Cell Distribution Width 17.2 % (11.6-14.8); White Blood Cell Count 6.8 X10^3/uL (4.5-11.0)
[2024-05-02 13:25] LABS: Alanine Aminotransferase 19 IU/L (<50); Albumin Globulin Ratio 1.4 (1.0-2.8); Alkaline Phosphatase 67 U/L (38-126); Aspartate Aminotransferase 22 IU/L (17-59); Bilirubin Total 0.6 mg/dL (0.2-1.3); Blood Urea Nitrogen 91 mg/dL (9-20); Calcium 9.8 mg/dL (8.4-10.2); Carbon Dioxide 22 mmol/L (22-32); Chloride 100 mmol/L (98-107); Cholesterol 98 mg/dL (140-199); Estimated Glomerular Filt Rate 4 mL/min (>60); Globulin 2.9 g/dL (1.7-4.1); Glucose 95 mg/dL (80-110); HDL Cholesterol 29 mg/dL (40-60); HEMOLYSIS < 15 (0-50); LDL Cholesterol Calculated 47 mg/dL (<100); Potassium 5.2 mmol/L (3.4-5.1); Sodium 138 mmol/L (137-145); Total Protein 6.9 g/dL (6.3-8.2); Triglycerides 112 mg/dL (35-150)
[2024-05-02 13:41] LABS: Prolactin 30.6 ng/mL (3.7-17.9)
[2024-05-02 13:53] LABS: TSH w/ Reflex to FT4 2.57 uIU/mL (0.47-4.68)
== END ==
PROVIDERS: PCP Internal Medicine; Referring Provider Internal Medicine; Visit Provider Internal Medicine
DX: G47.9 Sleep disorder, unspecified (principal); R53.83 Other fatigue; N62 Hypertrophy of breast; E78.2 Mixed hyperlipidemia
CPT/HCPCS: 36415; 80053; 80061; 84146; 84443; 85027

== ENCOUNTER → 2024-05-09 09:14 | Outpatient (CLI) | payer MEDICARE, OTHER, SELFPAY ==
--- NOTE | 2024-05-09 | DI.ECHO.S_ITS ---
[facility]---------+ [facility] : : [address] : : [place] : : [id number] : : Phone: [phone] Echocardiogram Report + + :Name: ADRIANO HIGGINS Study Date: 05/09/2024 Height: 72 in : :Hospital ReadingLocation: Weight: 190 lb : : Gender: Male BSA: 2.1 m2 : :: 1950 Age: 73 yrs BP: 182/96 mmHg: :Reason For Study: SYSTOLIC HEART FAILURE : :Ordering Physician: MICHAEL CALERO : :J Performed By: Tracee Burleson : :Referring: MICHAEL CALERO J : + + Interpretation Summary The ejection fraction is estimated to be 55-60%. Diastolic function could not be accurately assessed due to contradictory data. The right ventricle is normal in size and function. There is mild biatrial enlargement. No valvular abnormalities. Pulmonary artery pressures cannot be estimated because of the lack of a measurable TR jet velocity but the IVC suggests a CVP of around 3 mmHg. Compared to the prior study 12/28/2018, the left ventricle is slightly less dynamic. Procedure: A two-dimensional transthoracic echocardiogram with color flow and Doppler was performed. The study quality was technically adequate. Comparison is made with the echocardiogram of 12/28/2018. The patient was in sinus rhythm with heart rates between 60-73 bpm during the exam. Left Ventricle: The left ventricle is normal in size. There is normal left ventricular wall thickness. The ejection fraction is estimated to be 55-60%. Diastolic function could not be accurately assessed due to contradictory data. Right Ventricle: The right ventricle is normal in size and function. Atria: There is mild biatrial enlargement. There is no Doppler evidence for an interatrial shunt. Mitral Valve: The mitral valve leaflets appear mildly thickened, but open well. There is mild mitral annular calcification. There is trace mitral regurgitation. Aortic Valve: The aortic valve is trileaflet. The aortic valve is mildly calcified. There is discrete nodular thickening of the non- coronary cusp. There is no aortic valve stenosis. No aortic regurgitation is present. Tricuspid Valve: The tricuspid valve leaflets are thin and pliable. There is trace tricuspid regurgitation. Pulmonary artery pressures cannot be estimated because of the lack of a measurable TR jet velocity but the IVC suggests a CVP of around 3 mmHg. Pulmonic Valve: The pulmonic valve leaflets are thin and pliable; valve motion is normal. There is mild pulmonic regurgitation. Great Vessels: The aortic root is normal size. The dimensions of the ascending aorta are normal. The IVC is of normal diameter and collapses greater than 50% with a sniff. This suggests a low right atrial pressure of 3 mm Hg. Pericardium/ Pleura There is no pericardial effusion. There is no pleural effusion. MMode/2D Measurements & Calculations LVIDd: 5.6 cm LVOT diam: 2.2 cm LVIDs: 3.8 cm Ao root diam: 3.6 cm FS: 32.1 % asc Aorta Diam: 3.7 cm EPSS: 1.3 cm Ao Arch Diam (Prox Trans): 2.8 cm IVSd: 1.0 cm LVPWd: 0.82 cm LV abdi. diameter/BSA (cm/m^2): 2.7 LV sys. diameter/BSA (cm/m^2): 1.8 LA A2 area: 22.4 cm2 RA long axis: 5.9 cm LA A4 area: 23.3 cm2 RA area: 19.9 cm2 LA length (vol): 5.7 cm RA vol: 57.5 ml LA vol: 78.4 ml RA : 27.6 ml/m2 LA vol index: 37.6 ml/m2 IVC diam: 1.4 cm RVD1 (basal): 4.1 cm RVD2 (mid): 3.4 cm TAPSE: 2.3 cm Doppler Measurements & Calculations Ao V2 max: 120.8 cm/sec LVOT Max Mario: 91.0 cm/sec Ao V2 mean: 90.3 cm/sec LV V1 max P.3 mmHg Ao max P.8 mmHg LV V1 VTI: 21.7 cm Ao mean P.5 mmHg MELODIE(I,D): 2.6 cm2 Ao V2 VTI: 31.0 cm MELODIE(V,D): 2.8 cm2 sev ratio: 0.70 MELODIE indexed to BSA (cm^2/m^2): 1.2 MV E max mario: 69.4 cm/sec TR max mario: 247.1 cm/sec MV A max mario: 105.1 cm/sec TR max P.4 mmHg MV E/A: 0.66 PA V2 max: 135.1 cm/sec Med Peak E' Mario: 5.4 cm/sec PA V2 mean: 89.9 cm/sec E/E' med: 12.8 PA mean P.7 mmHg Lat Peak E' Mario: 6.0 cm/sec PA pr(Accel): 26.3 mmHg E/E' lat: 11.5 E/e' average: 12.2 MV dec time: 0.33 sec MVA(VTI): 2.2 cm2 MV V2 mean: 66.4 cm/sec SV(LVOT): 79.7 ml MV mean P.9 mmHg MV V2 VTI: 35.4 cm Reading Physician:05:58 PM
== END ==
PROVIDERS: PCP Internal Medicine; Referring Provider Internal Medicine Nephrology; Visit Provider Internal Medicine Nephrology
DX: I50.20 Unspecified systolic (congestive) heart failure (principal); I34.81 Nonrheumatic mitral (valve) annulus calcification; I37.1 Nonrheumatic pulmonary valve insufficiency
CPT/HCPCS: 93306

== ENCOUNTER → 2024-05-16 11:53 | Outpatient (CLI) | payer MEDICARE, OTHER, SELFPAY ==
--- NOTE | 2024-05-16 11:55 | DI.CT.S_ITS ---
PROCEDURE: CT HEAD/BRAIN WO CON INDICATIONS: fall, head injury, weakness TECHNIQUE: Noncontrast 4.5 mm thick angled axial sections acquired from the foramen magnum to the vertex, with coronal and sagittal reformats. For radiation dose reduction, the following was used: automated exposure control, adjustment of mA and/or kV according to patient size. COMPARISON: None. FINDINGS: Image quality: Diagnostic. CSF spaces: Basal cisterns are patent. No extra-axial fluid collections. The ventricles are symmetric in size and shape. Brain: No intracranial bleeds or masses. There is cerebral volume loss for age, with resultant ventricular and sulcal prominence. There are periventricular and deep white matter chronic small vessel ischemic changes. There is intracranial internal carotid artery atherosclerosis. Skull and face: Calvarium and visualized facial bones appear intact, without suspicious lesions. Sinuses: Visualized sinuses and mastoids are clear. IMPRESSION: 1. CT head without acute intracranial abnormalities or acute calvarial fractures. 2. Age-related senescent changes and sequela of chronic small vessel ischemic disease. Dictated by: Harley Coronado M.D. on 05/16/2024 at 12:41 Approved by: Harley Coronado M.D. on 05/16/2024 at 12:41
== END ==
PROVIDERS: PCP Internal Medicine; Referring Provider Internal Medicine; Visit Provider Internal Medicine
DX: S09.90XA Unspecified injury of head, initial encounter (principal); I65.29 Occlusion and stenosis of unspecified carotid artery; R53.1 Weakness; W10.8XXD Fall (on) (from) other stairs and steps, subsequent encounter
CPT/HCPCS: 70450

== ENCOUNTER → 2024-07-31 15:19 | Outpatient (CLI) | payer MEDICARE, OTHER, SELFPAY ==
[2024-07-31 22:41] LABS: Vitamin B12 Reflex MMA if <400 799 pg/mL (239-931)
== END ==
PROVIDERS: PCP Internal Medicine; Referring Provider Internal Medicine; Visit Provider Internal Medicine
DX: E53.8 Deficiency of other specified B group vitamins (principal); R77.9 Abnormality of plasma protein, unspecified
CPT/HCPCS: 82607; 84155; 84165

== ENCOUNTER 2024-11-23 10:17 | Emergency (ER) | payer MEDICARE, OTHER, SELFPAY ==
[2024-11-23] VITALS (15 sets, daily range): BP systolic 136–191; BP diastolic 70–94; PULSE 72–85; RESP 16; TEMP 36.6; O2SAT 92–98; BMI 24.5
[2024-11-23 15:03] LABS: Add Manual Diff / Slide Review NO; Hematocrit 32.8 % (41-53); Hemoglobin 10.7 g/dL (13.5-17.5); Lymphocytes Absolute Auto 800 /uL (1100-4500); Mean Corpuscular HGB Conc 32.7 % (30-36); Mean Corpuscular Hemoglobin 30.9 PG (26-34); Mean Corpuscular Volume 94.7 fL (80-100); Platelet Count 281 X10^3/uL (150-400)
[2024-11-23 15:09] LABS: Alanine Aminotransferase 23 IU/L (<50); Albumin 3.9 g/dL (3.5-5.0); Albumin Globulin Ratio 1.3 (1.0-2.8); Alkaline Phosphatase 62 U/L (38-126); Blood Urea Nitrogen 91 mg/dL (9-20); Calcium 7.3 mg/dL (8.4-10.2); Carbon Dioxide 15 mmol/L (22-32); Chloride 97 mmol/L (98-107); Globulin 2.9 g/dL (1.7-4.1); Glucose 105 mg/dL (70-99); HEMOLYSIS 44 (0-50); Lipase 504 U/L (23-300); Potassium 3.3 mmol/L (3.4-5.1); Sodium 135 mmol/L (137-145); Total Protein 6.8 g/dL (6.3-8.2)
[2024-11-23 15:27] LABS: Lactate (Lactic Acid) 1.0 mmol/L (0.7-2.1)
--- NOTE | 2024-11-23 15:29 | ED.NAVMDI ---
HPI - Nausea/Vomiting/Diarrhea General Chief complaint: Nausea/Vomiting/Diarrhea Stated complaint: N/V X 7 days Time Seen by Provider: 11/23/24 15:00 History of Present Illness HPI Narrative: Patient is 73-year-old male who has a history of chronic kidney disease on peritoneal dialysis followed by Dr. Gonsalez, hypertension hyperlipidemia GERD presenting today with nausea vomiting diarrhea. He reports he has been nauseous off and on for the last 7 days. He started having diarrhea 2 days ago but it seems to have slowed this morning however last night he was up multiple times. It is nonbloody. He is afraid to eat because he feels like it is going to come up. 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 He has not had any fever he denies any abdominal pain. He is not dizzy not lightheaded and denies any chest pain or shortness of breath. He has no history of congestive heart failure. No one else is sick at home he has had no recent travel and no recent antibiotics. Related Data Home Medications ?Medication ?Instructions ?Recorded ?Confirmed ascorbic acid (vitamin C) 500 mg 500 mg PO DAILY 04/16/22 09/06/24 tablet cholecalciferol (vitamin D3) 25 25 mcg PO DAILY 04/16/22 09/06/24 mcg (1,000 unit) capsule dorzolamide 2 % eye drops 1 drp EYE-BOTH BID 04/16/22 09/06/24 folic acid 800 mcg tablet 1.6 mg PO BID 04/16/22 09/06/24 latanoprost 0.005 % eye drops 1 drp EYE-BOTH DAILY 04/16/22 09/06/24 multivitamin 1 tab PO DAILY 04/16/22 09/06/24 tamsulosin 0.4 mg capsule 0.8 mg PO BEDTIME 04/16/22 09/06/24 thera tear 1 drp ophthalmic (eye) DAILY 04/16/22 09/06/24 darbepoetin bo in polysorbat IV [id number] anemia 04/19/23 09/06/24 [Aranesp (in polysorbate)] safety needles 23 gauge x 1 #50 ea 11/07/24 11/07/24 (Eclipse Needle) syringe with needle 3 mL 23 x 1 #800 ea 11/07/24 11/07/24 (BD Luer-Asya Syringe) testosterone cypionate 200 mg/mL mg IM 11/07/24 11/07/24 intramuscular oil Previous Rx's ?Medication ?Instructions ?Recorded sulfasalazine 500 mg tablet 1 g (2 x 500 mg) PO BID #180 tabs 06/16/23 carvedilol 25 mg tablet 25 mg PO BID #180 tabs 01/02/24 amlodipine 10 mg tablet 10 mg PO DAILY #90 tabs 09/06/24 omeprazole 20 mg capsule,delayed 20 mg PO DAILY #90 caps 09/06/24 release rosuvastatin 20 mg tablet 20 mg PO DAILY #90 tabs 11/08/24 ondansetron 4 mg disintegrating 4 mg PO Q8H PRN nausea and 11/23/24 tablet vomiting #10 tabs Allergies Allergy/AdvReac Type Severity Reaction Status Date / Time adhesive tape Allergy Mild Rash Verified 11/23/24 11:00 finasteride AdvReac Intermediate gynecomasti Verified 11/23/24 11:00 a Patient History Medical History Osteoarthritis of right foot Gait instability Polyneuropathy, unspecified Hypogonadism Sleep disorder Primary osteoarthritis involving multiple joints Peritoneal dialysis status Gynecomastia Venous (peripheral) insufficiency Stage 4 chronic kidney disease BPH w urinary obs/LUTS Mixed hyperlipidemia Essential hypertension Acne Fractures (~1964) Chronic back pain Measles Anemia Retinal vein occlusion of right eye Glaucoma Ulcerative colitis GERD (gastroesophageal reflux disease) Surgical History Anesthesia Hx of removal of neck cyst (~1961) Family History Father COPD (chronic obstructive pulmonary disease) Pneumonia Mother History of heart disease Mental health problem Grandfather History of emphysema 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 HEENT: Head atraumatic,EOMI, pupils reactive, face symmetric, dry mucous membranes CARDIOVASCULAR: Regular rate and rhythm without murmurs, rubs or gallops. RESPIRATORY: Breath sounds equal bilaterally, no wheezes rales or rhonchi. ABDOMEN: Soft, nontender. Normoactive bowel sounds all 4 quadrants. No guarding or rebound. : No CVA tenderness EXTREMITIES: Normal range of motion, no clubbing or edema. Neurovascularly intact NEUROLOGICAL: Alert and oriented x4.Normal gait and speech. Cranial nerves II through XII grossly intact. SKIN: Warm, dry, no laceration, no petechiae, no rashes or lesions. Course Orders Ordered: ED Orders 11/23/24 15:44 CT abdomen pelvis wo con Stat Discontinued Medications Sodium Chloride (Normal Saline 0.9%) 500 mls @ 1,000 mls/hr IV BOLUS ONE Stop: 11/23/24 16:13 Last Infusion: 11/23/24 17:15 Dose: Infused Documented By: Admin: 11/23/24 15:53 Dose: 1,000 mls/hr Documented By: CAMPOS Ondansetron HCl (Ondansetron 4 Mg/2 Ml Inj) 4 mg IV NOW PRN PRN Reason: Nausea And Vomiting Ondansetron HCl (Ondansetron 4 Mg Odt) 4 mg PO NOW PRN PRN Reason: Nausea And Vomiting Ondansetron HCl (Ondansetron 4 Mg/2 Ml Inj) 4 mg IV NOW ONE Stop: 11/23/24 15:45 Last Admin: 11/23/24 15:54 Dose: 4 mg Documented By: CAMPOS Vital Signs Vital signs: Vital Signs - 8 hr 11/23/24 15:16 11/23/24 15:16 11/23/24 15:30 Pulse Rate 74 Blood Pressure 186/86 H 167/77 H Pulse Oximetry 95 11/23/24 15:30 11/23/24 15:58 11/23/24 15:58 Pulse Rate 72 80 Blood Pressure 191/79 H Pulse Oximetry 94 96 11/23/24 16:00 11/23/24 16:00 11/23/24 16:30 Pulse Rate 76 72 Blood Pressure 174/79 H Pulse Oximetry 95 93 11/23/24 16:31 11/23/24 16:31 11/23/24 17:00 Pulse Rate 74 Blood Pressure 172/72 H 163/70 H Pulse Oximetry 94 11/23/24 17:00 11/23/24 17:30 11/23/24 17:30 Pulse Rate 72 78 Blood Pressure 181/77 H Pulse Oximetry 92 94 11/23/24 18:00 11/23/24 18:00 11/23/24 18:30 Pulse Rate 76 Blood Pressure 168/79 H 170/94 H Pulse Oximetry 94 11/23/24 18:30 Pulse Rate 76 Blood Pressure Pulse Oximetry 94 MDM - Nausea/Vomiting/Diarrhea Lab Data 11/23/24 11:15 11/23/24 11:15 Labs: Lab Results 11/23/24 Range/Units 11:15 WBC 10.0 (4.5-11.0) X10^3/uL RBC 3.47 L (4.5-5.9) X10^6/uL Hgb 10.7 L (13.5-17.5) g/dL Hct 32.8 L (41-53) % MCV 94.7 (80-100) fL MCH 30.9 (26-34) PG MCHC 32.7 (30-36) % RDW 17.1 H (11.6-14.8) % Plt Count 281 (150-400) X10^3/uL Neut % (Auto) 76.8 H (50-75) % Lymph % (Auto) 8.1 L (25-40) % Bland % (Auto) 12.8 (3-14) % Eos % (Auto) 1.9 L (2-4) % Baso % (Auto) 0.4 (0-2) % Neut # (Auto) 7700 H (0604-1550) /uL Lymph # (Auto) 800 L (7299-0468) /uL Bland # (Auto) 1300 H (0-900) /uL Eos # (Auto) 200 (0-450) /uL Baso # (Auto) 0 (0-100) /uL Sodium 135 L (137-145) mmol/L Potassium 3.3 L (3.4-5.1) mmol/L Chloride 97 L (98-107) mmol/L Carbon Dioxide 15 L (22-32) mmol/L BUN 91 H (9-20) mg/dL Creatinine 17.12 H* (0.66-1.25) mg/dL Estimated GFR 3 L (>60) mL/min BUN/Creatinine Ratio 5.3 L (6-22) Glucose 105 H (70-99) mg/dL Lactate 1.0 (0.7-2.1) mmol/L Calcium 7.3 L (8.4-10.2) mg/dL Total Bilirubin 0.6 (0.2-1.3) mg/dL AST 40 (17-59) IU/L ALT 23 (<50) IU/L Alkaline Phosphatase 62 (38-126) U/L Total Protein 6.8 (6.3-8.2) g/dL Albumin 3.9 (3.5-5.0) g/dL Globulin 2.9 (1.7-4.1) g/dL Albumin/Globulin Ratio 1.3 (1.0-2.8) Lipase 504 H (23-300) U/L Imaging Data CT scan - abdomen/pelvis: Radiologist's Impression: PROCEDURE: CT ABDOMEN PELVIS WO CON INDICATIONS: vomiting TECHNIQUE: CT of the abdomen and pelvis was obtained without intravenous contrast. Coronal and sagittal reformats were performed. For radiation dose reduction, the following was used: automated exposure control, adjustment of mA and/or kV according to patient size. COMPARISON: [facility], MR, MR ABDOMEN WITHOUT CONTRAST, 03/28/2024, 15:52. FINDINGS: Image quality: Diagnostic. Lower Chest: No significant findings. ABDOMEN: Liver: Low-attenuation hepatic foci most consistent with simple cysts. Gallbladder: No radiopaque gallstones or wall thickening. Biliary ducts: No biliary dilation. Pancreas: No ductal dilation. Spleen: Size is within normal limits. Adrenal Glands: No adrenal nodules. Kidneys and Ureters: No hydronephrosis. Bilateral mass lesions are present. Some are hypodense suggestive of simple cyst. There is a more complex focus on the left measuring 4.3 cm, increased from 3.8 on prior exam. A similar more complex exophytic focus on the right kidney measures 3.4 cm, compared to 2.2 cm. Stomach and Bowel: No obstruction. There is a mild appearance of left colonic thickening with very minimal areas of stranding. No diverticula. Peritoneum: Minimal perihepatic and perisplenic fluid.. No free air. Ventral Wall: No significant hernia. 3.0 cm mass within the midline at the subcutaneous fat of the anterior chest wall. Abdominal Nodes: No retroperitoneal or mesenteric adenopathy by size criteria. Vessels: Aorta and inferior vena cava are normal in size. PELVIS: Pelvic Organs: Prostate gland is enlarged. Bladder: Unremarkable. Pelvic Nodes: No enlarged lymph nodes. Miscellaneous: Bilateral fat containing inguinal hernias are seen. Bones: No aggressive osseous abnormality. IMPRESSION: Minimal perihepatic and perisplenic fluid. Mild appearance of thickening within the left colon with very minimal areas of pericolonic stranding. Developing colitis cannot be excluded. Bilateral renal foci which have enlarged as described above compared to prior exam. While these could represent enlarging cysts, other etiologies cannot be excluded. It is noted that prior MRI was equivocal as to etiology. Dictated by: Charmaine Walker M.D. on 11/23/2024 at 17:29 [facility] Narrative Medical decision making narrative: MDM CC: Nausea vomiting diarrhea Complicating co-morbidities: Chronic kidney disease peritoneal dialysis hypertension Data collected from: Patient Medical records reviewed: PCP note from November 03 for 2024 Differential considered: Gastroenteritis, Exam documented above, pertinent findings include: Alert well-appearing 73-year-old male slightly dry mucous membranes abdomen is soft nontender Lab Test results independently reviewed as above. Pertinent findings: Creatinine 17.1 Sodium 135 potassium 3.3 chloride 97 bicarb 15 BUN 91 glucose 105 Lactate 1.0 CBC no leukocytosis, anemia stable hemoglobin 10 point hematocrit 32 Imaging studies independently reviewed: CT abdomen noncontrast minimal perihepatic perisplenic fluid mild appearance of left colon and very minimal areas of pericolonic stranding developing colitis possible Consultations: 1612 DR. Adams-agrees that patient is likely dehydrated no concern for lab abnormalities at this time elevated creatinine expected in peritoneal dialysis. Request results be faxed to his fax number patient has a appointment to follow-up on Tuesday Treatments: IV fluids Re-evaluations: No vomiting he has been in the ED for numerous hours no bowel movement abdomen is soft Discussion: Patient is 73-year-old male history of peritoneal dialysis presenting today with nausea vomiting diarrhea. Vitals are stable he does look slightly dehydrated with some dry mucous membranes. He is given 500 cc fluid bolus. He is tolerating p.o. fluids CT shows possible colitis but he has no leukocytosis or fever. Unable to give us any kind of stool sample in the ED recommend outpatient follow up. He is given oral rehydration instructions along with Zofran. Recommended Imodium if needed for the diarrhea. Nephrology was consulted in regards to elevated BUN creatinine which he thought sounded appropriate for a peritoneal dialysis patient and was not concerned. Potassium also within limits. But this time supportive care only no need for admission. Discharge Plan Departure Patient Disposition: Home Clinical Impression: Gastroenteritis Instructions: DI for Viral Gastroenteritis -- Adult Activity Restrictions/Additional Instructions: *You have been diagnosed with gastroenteritis *What to do: At this time increase fluids as tolerated recommend Pedialyte or electrolyte fluid they increase diet as tolerated *Continue to take medications as directed Zofran 4 mg every 8 hours if needed for nausea or vomiting--pennie christie Imodium bysr-lbn-codelix Imodium as well *Follow up with your primary care provider in 2-3 days or call [phone] *Return to ER if you should have increased abdominal pain persistent nausea vomiting passing such as or any new, worsening or concerning symptoms Prescriptions: New ondansetron 4 mg tablet,disintegrating 4 mg PO Q8H PRN (Reason: nausea and vomiting) Qty: 10 0RF No Action sulfasalazine 500 mg tablet 1 g PO BID Qty: 180 3RF carvedilol 25 mg tablet 25 mg PO BID Qty: 180 3RF amlodipine 10 mg tablet 10 mg PO DAILY Qty: 90 3RF omeprazole 20 mg capsule,delayed release(DR/EC) 20 mg PO DAILY Qty: 90 3RF rosuvastatin 20 mg tablet 20 mg PO DAILY Qty: 90 3RF tamsulosin 0.4 mg capsule 0.8 mg PO BEDTIME folic acid 800 mcg tablet 1.6 mg PO BID cholecalciferol (vitamin D3) 25 mcg (1,000 unit) capsule 25 mcg PO DAILY multivitamin Tablet 1 tab PO DAILY ascorbic acid (vitamin C) 500 mg tablet 500 mg PO DAILY dorzolamide 2 % drops 1 drp EYE-BOTH BID thera tear 1 drp ophthalmic (eye) DAILY latanoprost 0.005 % drops 1 drp EYE-BOTH DAILY darbepoetin bo in polysorbat [Aranesp (in polysorbate)] IV [id number] (DME) syringe with needle [BD Luer-Asya Syringe] 3 mL 23 x 1 syringe See Rx Instructions .ROUTE Q2W Qty: 800 Rx Instructions: As directed testosterone cypionate 200 mg/mL oil IM (DME) Eclipse Needle 23 gauge x 1 needle See Rx Instructions .ROUTE Q2W Qty: 50 Rx Instructions: As directed Referrals: Stephen Chacon MD [Primary Care Provider, Internal Medicine] Stand Alone Forms: Patient Portal/API
[2024-11-23 15:30] LABS: Estimated Glomerular Filt Rate 3 mL/min (>60)
--- NOTE | 2024-11-23 15:44 | DI.CT.S_ITS ---
PROCEDURE: CT ABDOMEN PELVIS WO CON INDICATIONS: vomiting TECHNIQUE: CT of the abdomen and pelvis was obtained without intravenous contrast. Coronal and sagittal reformats were performed. For radiation dose reduction, the following was used: automated exposure control, adjustment of mA and/or kV according to patient size. COMPARISON: [facility], MR, MR ABDOMEN WITHOUT CONTRAST, 03/28/2024, 15:52. FINDINGS: Image quality: Diagnostic. Lower Chest: No significant findings. ABDOMEN: Liver: Low-attenuation hepatic foci most consistent with simple cysts. Gallbladder: No radiopaque gallstones or wall thickening. Biliary ducts: No biliary dilation. Pancreas: No ductal dilation. Spleen: Size is within normal limits. Adrenal Glands: No adrenal nodules. Kidneys and Ureters: No hydronephrosis. Bilateral mass lesions are present. Some are hypodense suggestive of simple cyst. There is a more complex focus on the left measuring 4.3 cm, increased from 3.8 on prior exam. A similar more complex exophytic focus on the right kidney measures 3.4 cm, compared to 2.2 cm. Stomach and Bowel: No obstruction. There is a mild appearance of left colonic thickening with very minimal areas of stranding. No diverticula. Peritoneum: Minimal perihepatic and perisplenic fluid.. No free air. Ventral Wall: No significant hernia. 3.0 cm mass within the midline at the subcutaneous fat of the anterior chest wall. Abdominal Nodes: No retroperitoneal or mesenteric adenopathy by size criteria. Vessels: Aorta and inferior vena cava are normal in size. PELVIS: Pelvic Organs: Prostate gland is enlarged. Bladder: Unremarkable. Pelvic Nodes: No enlarged lymph nodes. Miscellaneous: Bilateral fat containing inguinal hernias are seen. Bones: No aggressive osseous abnormality. IMPRESSION: Minimal perihepatic and perisplenic fluid. Mild appearance of thickening within the left colon with very minimal areas of pericolonic stranding. Developing colitis cannot be excluded. Bilateral renal foci which have enlarged as described above compared to prior exam. While these could represent enlarging cysts, other etiologies cannot be excluded. It is noted that prior MRI was equivocal as to etiology. Dictated by: Charmaine Walker M.D. on 11/23/2024 at 17:29 Approved by: Charmaine Walker M.D. on 11/23/2024 at 17:41
[2024-11-23] MEDS: SODIUM CHLORIDE 0.9% 500 ML 1000 ML IV (15:53)
[2024-11-23] MEDS: ONDANSETRON 4 MG/2 ML INJ IV (15:54)
== END 2024-11-23 18:49 | disposition home or self-care (01) ==
PROVIDERS: Emergency Medicine; Emergency Provider Emergency Medicine; PCP Internal Medicine
DX: A08.4 Viral intestinal infection, unspecified (principal)
CPT/HCPCS: 36415; 74176; 80053; 83605; 83690; 85025; 96361; 96374; 99284; J2405; J7040

== ENCOUNTER → 2025-01-31 11:36 | Outpatient (CLI) | payer MEDICARE, OTHER, SELFPAY ==
--- NOTE | 2025-01-31 | DI.MRI.S_ITS ---
PROCEDURE: MR ABDOMEN RENAL PROTOCOL INDICATIONS: Left renal mass TECHNIQUE: Coronal HASTE through abdomen and pelvis; axial 2D FLASH in- and [id number] (with and without fat saturation), and breath-hold T2 FSE from the hepatic dome to the bottom of the kidneys. Coronal HASTE MR urogram of kidneys and bladder. Dynamic coronal VIBE during IV gadolinium administration; postgadolinium axial VIBE or 2D FLASH with fat saturation from the hepatic dome through the kidneys. COMPARISON: [facility], , MR ABDOMEN RENAL PROTOCOL, 12/29/2022, 11:32. FINDINGS: Image quality: Diagnostic. Kidneys and Ureters: Interval growth of the bilateral renal lesions. Details as follows: -exophytic mass on the posterior margin of the right superior kidney measures 5.2 x 5.0 x 4.7 centimeter, previously 1.4 x 1.6 x 1.6 centimeters (series 6, image 23) . This pass has hemorrhagic components, but also solid features as seen on the subtraction sequences (series 12, image 58). The mass contacts the renal fascia. No renal vein invasion. -partially exophytic mass on the posterior margin of the left kidney measuring 4.9 x 4.4 x 4.6 centimeter, previously 1.9 x 2.9 by 3.9 centimeter. The mass has enhancing components on the subtraction sequences, consistent with peripheral nodules (series 12, image 57). The mass does not contact the renal fascia. OTHER: Lung bases: Small pleural effusions. Subdermal cystic lesion just below the sternum measuring 1.9 centimeter, presumably an epidermal inclusion cyst. Liver: Multiple cysts. Gallbladder: No gallstones or wall thickening. Biliary ducts: No biliary dilation. Pancreas: Scattered subcentimeter cystic lesions, largest measuring 7 millimeter in the pancreatic body, previously 5 millimeter (series 6, image 19). Spleen: Size is within normal limits. Adrenal Glands: No adrenal nodules. Stomach and Bowel: Normal colonic caliber, without significant wall thickening. Peritoneum: Small volume ascites. Ventral Wall: No hernia. Abdominal Nodes: No retroperitoneal or mesenteric adenopathy by size criteria. Vessels: Aorta and inferior vena cava are normal in size. Bones: No aggressive osseous abnormality. IMPRESSION: Significant interval growth of both renal masses, with solid enhancing components consistent with malignancy. The presence of hemorrhage products in the right renal mass may indicate papillary renal cell carcinoma, while the left renal mass has imaging characteristics likely representing clear cell type. No definite evidence of renal vein invasion. No renal fascia invasion at this time. No retroperitoneal adenopathy. Small volume ascites and small pleural effusions. Growing cystic lesions of the pancreas, still measuring less than 1 centimeter. Two year follow-up or GI referral is recommended. Dictated by: J Carlos Carlson M.D. on 02/01/2025 at 12:48 Approved by: J Carlos Carlson M.D. on 02/01/2025 at 12:56
== END ==
PROVIDERS: PCP Internal Medicine; Referring Provider Internal Medicine; Visit Provider Urology
DX: N28.89 Other specified disorders of kidney and ureter (principal); J90 Pleural effusion, not elsewhere classified; K76.89 Other specified diseases of liver; K86.2 Cyst of pancreas; R18.8 Other ascites
CPT/HCPCS: 74183; 93010; A9579

== ENCOUNTER 2025-01-31 12:35 | Emergency (ER) | payer MEDICARE, OTHER, SELFPAY ==
--- OUTSIDE RECORDS SUMMARY | 2025-01-15 16:13 | XMS_ITS | Continuity of Care Document ---
Author Organization [facility] [place] [address] Phone Care Team Providers Care Voucher Examiner Name Role Phone Stephen Chacon MD Primary Care Provider Edmund Gonsalez MD Attending Provider [phone] Edmund Gonsalez MD Referring Provider [phone] Care Teams Patient Care Team Team Status: Active Member Role/Relationship Status Dates Stephen Chacon MD Primary Care Provider Active Visit Care Team Team Status: Inactive Member Role/Relationship Status Dates Stephen Chacon MD Primary Care Provider Active Start: January 15, 2025 End: January 15, 2025 Edmund Gonsalez MD Attending Provider Active Start: D ec2024 End: January 15, 2025 Edmund Gonsalez MD Referring Provider Active Start: D ec2024 End: January 15, 2025 Chief Complaint and Reason for Visit Chief Complaint Admit Date DYSPNEA January 15, 2025 1 :46pm Allergies, Adverse Reactions, Alerts No known allergies Social History Smoking Status Status Start Date End Date Date of Observa tion Never smoked tobacco (finding) December 31, 2013 2:32pm Observation Status Observation Response Date of Response Legal Sex Male Sex Assigned At Male December 161948 Problems Inactive/Resolved Problems Problem Diagnosis/Recorded Date Onset Date Status C omments Fall down stairs May 08, 2024 8:48pm Unknown Resolv ed Spasms of the hands or feet May 08, 2024 8:48pm Unknown Resolved ESRD (end stage renal disease) May 08, 2024 8:48pm Unknown Resolved Laceration of right eyebrow December 30, 2013 4:53pm Unknown Resolved Probl em List clean-up per request of Phys. EHR Cmte Medications Medication Status Dose Units Route Directions Qty Days Refills S tart Date Stop Date End Date Reason(s) Instructions Adherence Sulfasalazi ne 500 MG tablet Active 1000 MG PO TWICE A DAY [facility] er 2013 12:00a m Unknown Lisinopril 10 MG tablet Discont inued er 2013 12:00a m Aug[facility] t 2022 12:17 pm Omeprazole 20 MG capsule,del ayed release(DR/ EC) Active 20 MG PO DAILY [facility] er 2013 12:00a m Unknown Finasteride 1 MG tablet Active 5 MG PO DAILY [facility] er 2013 12:00a m Unknown Carvedilol (Coreg) 25 MG tablet Active 25 MG PO TWICE A DAY [place] 20[place] 11:00p m Unknown Amlodipine 5 MG tablet Active [address] 2022 11:00p m Unknown Tamsulosin 0.4 MG capsule Active 2 TAB PO DAILY October 07, 2022 11:00p m Unknown Rosuvastati n 20 MG tablet Active 20 MG PO DAILY October 07, 2022 11:00p m Unknown Procedures Procedure Date Performed Status XR Chest 2V January 15, 2025 2:00pm comple [email or web address] Relevant Diagnostic Tests and/or Laboratory Data Diagnostic Imaging Reports Author Nick Martinez [facility] Report Date/Time January 15, 2025 2 :09pm PT NAME: ADRIANO HIGGINS MR #: [id number] REG CLI/DI AGE: 74 CI DT/TM: 01/15/2504/10/1347 PCP: Stephen Chacon MD : 1950 ATT: Edmund Gonsalez MD SEX: M ORD: Edmund Gonsalez MD EXAM: [id number] XR/[id number] ([id number]) PROCEDURE: XR Chest 2V INDICATIONS: DYSPNEA TECHNIQUE: 2 views of the chest were acquired. COMPARISON: Prior chest x-ray February 29, 2024. Prior report is not available. FINDINGS: Mild bilateral perihilar and lower lobe peribronchial thickening, markedly less than on the prior exam, but more than expected for expiratory result. Bronchitis, viral infection, bronchopneumonia, asthma or other process should beconsidered. Follow-up suggested. Moderate calcifications of the aortic arch unchanged. Degenerative changes of the thoracic spine unchanged. Right azygos fissure/azygous lobe variant again noted. No pneumothorax, no pleural effusion, no lobar consolidation. Cardiopericardial silhouette and pulmonary vasculature within normal limits. IMPRESSION: Mild peribronchial thickening as discussed above. Follow-up suggested. If symptoms persist or worsen, CT chest could be performed. Reviewed by: Nick Martinez MD on 01/15/2025 2:09 PM PST Approved by: Nick Martinez MD on 01/15/2025 2:09 PM PST Station ID: [id number] Report Electronically Signed by Nick Martinez MD 01/15/25 1403 01/15/25 1409 cc: Edmund Gonsalez MD; Stephen Chacon MD Advance Directives Advance Directive Response Recorded Date/ Time Advance Directives No October 08, 2022 11:33am Advance Directives Information Provided Yes October 08, 2022 11:33am Insurance Providers Guarantor Rafael FUENTES Address [address] [facility] [address] Contact Info. Home Phone: Coverage Status Update:2024 Payer Group Member ID Coverage Type Subscriber Relationship to Subscriber Effective Date Expiration Date [employer] PLAN G Id: [id number] null Rafael FUENTES Id: [id number] [id number] [facility] [address] Home Phone: Email: Central Desktop Self 2017 Medicare A and B Id: [id number] null Rafael FUENTES Id: [id number] [address] [facility] [address] Home Phone: Email: Central Desktop Self 2013 Encounters Encounter Location(s) Arrival/Admit Date Discharge/Departure Date Discharge/Departure Disposition Provider(s) Departed Clinical -Diagnostic Imaging (Main) January 15, 2025 1:46pm January 15, 2025 11:59pm Discharged to home care or self care (routine discharge) Edmund Gonsalez MD
[2025-01-31 12:40] VITALS: BP 163/79; RESP 14; TEMP 36.1; O2SAT 97; BMI 25.7
--- NOTE | 2025-01-31 12:52 | EKG_ITS ---
[address] [address] Test Date: 2025-01-31 Pat Name: Bob Barriga Department: Room: Gender: Male Dental Hygienist: IRASEMA : 1950 Requested By: Order Number: [id number] Reading MD: James Downey MD Measurements Intervals [place] Rate: 68 P: 54 IL: 284 QRS: 17 QRSD: 84 T: 55 QT: 434 QTc: 461 Interpretive Statements Sinus rhythm with sinus arrhythmia with 1st degree AV block Electronically Signed On 01-31-2025 13:51:00 PST by James Downey MD
--- NOTE | 2025-01-31 12:58 | ED.RECABL ---
HPI - Recheck/Abnormal Lab/Rx General Chief Complaint: Recheck/Abnormal Lab/Rx Stated Complaint: high potassium- here recheck and meds sent from Dr Time Seen by Provider: 01/31/25 12:57 Source: patient Mode of arrival: Ambulatory History of Present Illness HPI narrative: Mr. Barriga is a very pleasant 74-year-old male with a past medical history of CKD on nightly peritoneal dialysis followed by Dr. Gonsalez, HTN, HLD, GERD who presents to the emergency department for outpatient lab work on Tuesday revealing elevated potassium of 6.7, advised to come here by his fish boning machine feeder. Patient states that he feels normal and has no symptoms. On Tuesday he had blood work drawn and his potassium was 6.7. His fish boning machine feeder attempted to prescribe him Kayexalate 15 g PO Tue/Tue/Tue however the pharmacy did not have this medication he was unable to get started therefore he was sent to the ER for further evaluation and treatment of his hyperkalemia. Patient denies chest pain, shortness of breath or any other concerns. He denies having issues with his potassium in the past. Related Data Home Medications ?Medication ?Instructions ?Recorded ?Confirmed ascorbic acid (vitamin C) 500 mg 500 mg PO DAILY 04/16/22 11/29/24 tablet cholecalciferol (vitamin D3) 25 25 mcg PO DAILY 04/16/22 11/29/24 mcg (1,000 unit) capsule dorzolamide 2 % eye drops 1 drp EYE-BOTH BID 04/16/22 11/29/24 folic acid 800 mcg tablet 1.6 mg PO BID 04/16/22 11/29/24 latanoprost 0.005 % eye drops 1 drp EYE-BOTH DAILY 04/16/22 11/29/24 multivitamin 1 tab PO DAILY 04/16/22 11/29/24 tamsulosin 0.4 mg capsule 0.8 mg PO BEDTIME 04/16/22 11/29/24 thera tear 1 drp ophthalmic (eye) DAILY 04/16/22 11/29/24 safety needles 23 gauge x 1 #50 ea 11/07/24 11/29/24 (Eclipse Needle) syringe with needle 3 mL 23 x 1 #800 ea 11/07/24 11/29/24 (BD Luer-Asya Syringe) testosterone cypionate 200 mg/mL mg IM 11/07/24 11/29/24 intramuscular oil Previous Rx's ?Medication ?Instructions ?Recorded sulfasalazine 500 mg tablet 1 g (2 x 500 mg) PO BID #180 tabs 06/16/23 amlodipine 10 mg tablet 10 mg PO DAILY #90 tabs 09/06/24 omeprazole 20 mg capsule,delayed 20 mg PO DAILY #90 caps 09/06/24 release rosuvastatin 20 mg tablet 20 mg PO DAILY #90 tabs 11/08/24 diphenoxylate-atropine 2.5 1 tab PO BID PRN diarrhea #30 tabs 11/26/24 mg-0.025 mg tablet carvedilol 25 mg tablet 25 mg PO BID #180 tabs 01/07/25 ondansetron 4 mg disintegrating 4 mg PO Q8H PRN nausea and 01/29/25 tablet vomiting #40 tabs sodium zirconium cyclosilicate 10 See Rx Instructions .Route 01/31/25 gram oral powder packet (Lokelma) .COMPLEX #5 ea Allergies Allergy/AdvReac Type Severity Reaction Status Date / Time adhesive tape Allergy Mild Rash Verified 01/31/25 12:40 finasteride AdvReac Intermediate gynecomasti Verified 01/31/25 12:40 a Review of Systems Review of Systems ROS Unobtainable: All systems reviewed & are unremarkable except as noted in HPI and below Patient History Medical History Osteoarthritis of right foot Gait instability Polyneuropathy, unspecified Hypogonadism Sleep disorder Primary osteoarthritis involving multiple joints Peritoneal dialysis status Gynecomastia Venous (peripheral) insufficiency Stage 4 chronic kidney disease BPH w urinary obs/LUTS Mixed hyperlipidemia Essential hypertension Acne Fractures (~1964) Chronic back pain Measles Anemia Retinal vein occlusion of right eye Glaucoma Ulcerative colitis GERD (gastroesophageal reflux disease) Surgical History Anesthesia Hx of removal of neck cyst (~1961) Family History Father COPD (chronic obstructive pulmonary disease) Pneumonia Mother History of heart disease Mental health problem Grandfather History of emphysema Social History details: (Malinda), 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 Well-developed patient, in no acute distress. HEAD: Atraumatic. Normocephalic. EYES: No scleral icterus. No injection or drainage. NECK: Trachea midline. Cervical ROM intact. CARDIOVASCULAR: Regular rate RESPIRATORY: ?Nonlabored respirations. ?Speaking in clear, full sentences. NEURO: AOx3. ?Clear speech. ?Moves all 4 extremities appropriately. SKIN: No rash or erythema of visible areas Initial Vital Signs Initial Vital Signs: Vital Signs Temperature 96.9 F L 01/31/25 12:40 Respiratory Rate 14 01/31/25 12:40 Blood Pressure 163/79 H 01/31/25 12:40 Pulse Oximetry 97 01/31/25 12:40 Oxygen Delivery Method Room Air 01/31/25 12:40 Course Orders Ordered: Discontinued Medications Sodium Zirconium Cyclosilicate (Sodium Zirconium Cyclosilicate 10 Gm Powd.Pack) 10 gm PO NOW ONE Stop: 01/31/25 14:10 Last Admin: 01/31/25 14:23 Dose: 10 gm Documented By: JESSICA Vital Signs Vital signs: Vital Signs - 8 hr 01/31/25 12:40 Temperature 96.9 F L Respiratory Rate 14 Blood Pressure 163/79 H Pulse Oximetry 97 Oxygen Delivery Method Room Air MDM - Recheck/Abnormal Lab/Rx Medical Records Attestation: I reviewed the patient's medical records. Lab Data 01/31/25 12:50 Labs: Lab Results 01/31/25 Range/Units 12:50 Sodium 135 L (137-145) mmol/L Potassium 5.5 H (3.4-5.1) mmol/L Chloride 99 (98-107) mmol/L Carbon Dioxide 19 L (22-32) mmol/L BUN 100 H (9-20) mg/dL Creatinine 15.76 H* (0.66-1.25) mg/dL Estimated GFR 3 L (>60) mL/min BUN/Creatinine Ratio 6.3 (6-22) Glucose 89 (70-99) mg/dL Calcium 7.4 L (8.4-10.2) mg/dL MDM Narrative Medical decision making narrative: 74-year-old male with a past medical history of CKD on nightly peritoneal dialysis followed by Dr. Gonsalez, HTN, HLD, GERD who presents to the emergency department for outpatient lab work on Tuesday revealing elevated potassium of 6.7, advised to come here by his fish boning machine feeder. Differential diagnosis includes but isn't limited to hyperkalemia, etc. On exam the patient is in no acute distress, nontoxic appearing, vital signs appropriate except for mildly elevated blood pressure 163/79. He is not having any symptoms, no chest pain, no shortness of breath. Outpatient labs on Tuesday revealed potassium 6.7, unable to get prescription of Kayexalate from his fish boning machine feeder. We will repeat Chem 7 and obtain EKG. EKG reveals sinus rhythm, rate 68 beats per minute, QTC 461, similar to 02/29/2024. CMP reveals baseline sodium 135. Potassium 5.5. Chronic CKD GFR 3. Potassium has improved significantly since his outpatient labs Tuesday, 6.7 now 5.5. We will treat with Lokelma in the ED. I did send him a short script for Lokelma until he can start his Kayexalate. He has repeat labs scheduled for Tuesday. Discussed strict ER return precautions. Patient verbalized understanding of all information is agreeable with the plan, he is stable for discharge home. Discharge Plan Departure Patient Disposition: Home Clinical Impression: Acute hyperkalemia, Requires peritoneal dialysis Instructions: DI for Hyperkalemia Activity Restrictions/Additional Instructions: Dear Yaritza Linus, Thank you for coming to the emergency department. Today you were evaluated for an elevated potassium on outpatient labs of 6.7. We repeated her labs today and your potassium is 5.5, it has improved but it is still slightly elevated. You have been treated with a medication called Lokelma in the emergency department which helps potassium be excreted in the stool. I have sent you a few doses of this medication to take every other day *IF* the prescription your fish boning machine feeder, Kayexalate, does not arrive to your pharmacy in the next 2 days. Please follow up with your repeat labs on Tuesday as scheduled. Please return to the ER immediately if you develop pain, difficulty breathing or any other concerns. Please follow up with your primary care doctor within the next 2-3 days for ER follow-up. (If you do not have a PCP you can call [phone]. ?to schedule an appointment with an [facility] Primary Care Provider) IF YOU DEVELOP ANY NEW OR WORSENING SYMPTOMS, RETURN TO THE ER! Please read the attached instructions, they highlight more specific treatments and interventions for you at home. Thank you for letting me participate in your care, Kelley Anderson PA-C Prescriptions: New Lokelma 10 gram powder in packet See Rx Instructions .ROUTE .COMPLEX Qty: 5 0RF Rx Instructions: 10 g orally every other day until you receive your Kayexalate prescription. No Action sulfasalazine 500 mg tablet 1 g PO BID Qty: 180 3RF amlodipine 10 mg tablet 10 mg PO DAILY Qty: 90 3RF omeprazole 20 mg capsule,delayed release(DR/EC) 20 mg PO DAILY Qty: 90 3RF rosuvastatin 20 mg tablet 20 mg PO DAILY Qty: 90 3RF diphenoxylate-atropine 2.5-0.025 mg tablet 1 tab PO BID PRN (Reason: diarrhea) Qty: 30 1RF carvedilol 25 mg tablet 25 mg PO BID Qty: 180 3RF ondansetron 4 mg tablet,disintegrating 4 mg PO Q8H PRN (Reason: nausea and vomiting) Qty: 40 5RF tamsulosin 0.4 mg capsule 0.8 mg PO BEDTIME folic acid 800 mcg tablet 1.6 mg PO BID cholecalciferol (vitamin D3) 25 mcg (1,000 unit) capsule 25 mcg PO DAILY multivitamin Tablet 1 tab PO DAILY ascorbic acid (vitamin C) 500 mg tablet 500 mg PO DAILY dorzolamide 2 % drops 1 drp EYE-BOTH BID thera tear 1 drp ophthalmic (eye) DAILY latanoprost 0.005 % drops 1 drp EYE-BOTH DAILY (DME) syringe with needle [BD Luer-Asya Syringe] 3 mL 23 x 1 syringe See Rx Instructions .ROUTE Q2W Qty: 800 Rx Instructions: As directed testosterone cypionate 200 mg/mL oil IM (DME) Eclipse Needle 23 gauge x 1 needle See Rx Instructions .ROUTE Q2W Qty: 50 Rx Instructions: As directed Referrals: Stephen Chacon MD [Primary Care Provider, Internal Medicine] Stand Alone Forms: Patient Portal/API
[2025-01-31 13:13] LABS: Blood Urea Nitrogen 100 mg/dL (9-20); Carbon Dioxide 19 mmol/L (22-32); Chloride 99 mmol/L (98-107); Sodium 135 mmol/L (137-145)
[2025-01-31 13:31] LABS: Calcium 7.4 mg/dL (8.4-10.2); Glucose 89 mg/dL (70-99)
[2025-01-31 13:37] LABS: HEMOLYSIS < 15 (0-50)
[2025-01-31 13:39] LABS: Estimated Glomerular Filt Rate 3 mL/min (>60)
[2025-01-31 13:41] LABS: Potassium 5.5 mmol/L (3.4-5.1)
[2025-01-31] MEDS: SODIUM ZIRCONIUM CYCLOSILICATE 10 GM POWD.PACK PO (14:23)
[2025-01-31 14:36] VITALS: BP 157/74; PULSE 65; O2SAT 99
== END 2025-01-31 14:37 | disposition home or self-care (01) ==
PROVIDERS: Emergency Medicine; Emergency Provider Physician Assistant; PCP Internal Medicine
DX: E87.5 Hyperkalemia (principal); I10 Essential (primary) hypertension; E78.5 Hyperlipidemia, unspecified; Z99.2 Dependence on renal dialysis
CPT/HCPCS: 36415; 74183; 80048; 93005; 93010; 99283; 99284; A9579